=== PATIENT | male | born 1950 | race Caucasian/White ===

== ENCOUNTER → 2021-12-17 10:21 | Outpatient (CLI) | payer OTHER, SELFPAY ==
--- NOTE | 2021-12-17 10:59 | DI.CT.S_ITS ---
PROCEDURE: CT CERVICAL SPINE WO CON INDICATIONS: Radiculopathy, cervical region TECHNIQUE: Noncontrast 3 mm thick sections acquired from the skull base to the T4 level. Sagittal and coronal reformats were then constructed. For radiation dose reduction, the following was used: automated exposure control, adjustment of mA and/or kV according to patient size. COMPARISON: None. FINDINGS: Image quality: Excellent. Bones: No fractures or dislocations. Visualized superior ribs are intact. C5-6 and C6-7 interbody fusion with good graft incorporation and anterior plate and screw hardware at C5-6. There is disc space narrowing and posterior disc osteophyte complex at C3-4 combines with hypertrophic uncovertebral joints resulting in moderate central and severe bilateral foraminal stenosis. C4-5 shows disc space narrowing, hypertrophic uncovertebral joints resulting in moderate central and severe right foraminal stenosis. Moderate left foraminal stenosis. At the remaining levels, no central or foraminal stenosis. Soft tissues: Prevertebral soft tissues are normal in thickness. No paravertebral hematomas. No apical pneumothoraces. IMPRESSION: 1. Small multilevel degenerative disc disease and arthropathy results in varying degrees of central and foraminal stenosis including moderate central and severe foraminal stenosis at C3-4 and C4-5 2. C5-6 and C6-7 interbody fusion with good graft incorporation Approved by: Eliezer Watson M.D. on 12/17/2021 at 11:47
== END ==
PROVIDERS: Referring Provider Nurse Practitioner Family; Visit Provider Nurse Practitioner Family
DX: M50.11 Cervical disc disorder with radiculopathy, high cervical region (principal); M48.02 Spinal stenosis, cervical region; M47.22 Other spondylosis with radiculopathy, cervical region; Z98.1 Arthrodesis status
CPT/HCPCS: 72125